=== PATIENT | male | born 1980 | race Caucasian/White ===

== ENCOUNTER 2020-10-05 14:45 | Emergency (ER) | payer SELFPAY | END 2020-10-05 15:05 | disposition left against medical advice (07) | LOC: CSHERS 14:45 | DX: Z53.21 Procedure and treatment not carried out due to patient leaving prior to being seen by health care provider (principal) ==

== ENCOUNTER 2020-10-06 02:08 | Emergency (ER) | payer SELFPAY ==
[2020-10-06] MEDS ORDERED: Ketorolac Tromethamine 30 MG/ML VIAL ONE (02:40)
== END 2020-10-06 03:24 | disposition home or self-care (01) ==
LOC: CSHERS 02:08
DX: S50.12XA Contusion of left forearm, initial encounter (principal); J45.909 Unspecified asthma, uncomplicated; F17.210 Nicotine dependence, cigarettes, uncomplicated; W18.30XA Fall on same level, unspecified, initial encounter
CPT/HCPCS: 96372; J1885

== ENCOUNTER 2020-10-13 12:29 | Emergency (ER) | payer OTHER, SELFPAY | END 2020-10-13 14:50 | disposition home or self-care (01) | LOC: CSHERS 12:29 | DX: S16.1XXA Strain of muscle, fascia and tendon at neck level, initial encounter (principal); S39.012A Strain of muscle, fascia and tendon of lower back, initial encounter; J45.909 Unspecified asthma, uncomplicated; F17.210 Nicotine dependence, cigarettes, uncomplicated; Z79.51 Long term (current) use of inhaled steroids; V43.52XA Car driver injured in collision with other type car in traffic accident, initial encounter | CPT/HCPCS: 72040; 72100 ==